=== PATIENT | male | born 1975 | race Caucasian/White ===

== ENCOUNTER 2017-11-11 07:30 | Day surgery (SDC) | payer OTHER ==
[~2017-11-11 07:30] MED LIST: CEFAZOLIN 2 GM/D5W RTU 2 GM/50 ML RTUPB IV PRN; CEFAZOLIN SODIUM 2 GM in DEXTROSE 5%-WATER 100 ML IV PRN
[2017-11-11] MEDS ORDERED: BUPIVACAINE HCL 0.5%/EPI 1:200000 INJ 1.8 ML CARTRIDGE ONE (08:28)
[2017-11-11] MEDS ORDERED: MINERAL OIL (STERILE) 10 ML VIAL ONE (08:28)
[2017-11-11] MEDS ORDERED: BUPIVACAINE HCL 0.5%-EPI 1:200000 INJ/PF 30 ML VIAL ONE (08:28)
[2017-11-11] MEDS ORDERED: OXYMETAZOLINE HCL 0.05% NASAL SPRAY 15 ML BOTTLE ONE (08:28)
[2017-11-11] MEDS ORDERED: SCOPOLAMINE HYDROBROMIDE 1.5 MG PATCH.TD72 TD PRN (08:31)
[2017-11-11] MEDS ORDERED: FENTANYL CITRATE INJ/PF 100 MCG/2 ML AMPUL ONE (08:39)
[2017-11-11] MEDS ORDERED: MIDAZOLAM 2 MG/2 ML INJ ONE (08:39)
[2017-11-11] MEDS ORDERED: HYDROMORPHONE HCL INJ/PF 2 MG/ML AMPULE ONE (08:40)
[2017-11-11] MEDS ORDERED: LIDOCAINE 2% INJ-PF (20 MG/ML) 10 ML AMPUL ONE (08:41)
[2017-11-11] MEDS ORDERED: SUCCINYLCHOLINE CHLORIDE INJ 200 MG/10 ML VIAL ONE (08:41)
[2017-11-11] MEDS ORDERED: ONDANSETRON HCL INJ/PF 4 MG/2 ML SDV ONE (08:41)
[2017-11-11] MEDS ORDERED: DEXAMETHASONE SOD PHOS INJ 10 MG/1 ML VIAL ONE (08:41)
[2017-11-11] MEDS ORDERED: PROPOFOL INJ 200 MG/20 ML VIAL IV ONE (08:41)
[2017-11-11] MEDS: HYDROMORPHONE HCL INJ/PF 2 MG/ML AMPULE ONE ×2 (13:16→13:35)
[2017-11-11] MEDS ORDERED: OXYCODONE-ACETAMINOPHEN 5-325 MG TABLET ONE (14:03)
--- NOTE | 2017-11-15 19:14 | [facility]ARE OPERATIVE REPORT E ---
[facility] Operative Report NAME: BLAIR PAGAN AGE: 42Y DATE OF SURGERY: 11/11/2017 ROOM: PREOPERATIVE DIAGNOSES: 1. Nasal deformities, acquired. 2. Nasal septal deviation, acquired. 3. Chronic nasal dyspnea. 4. Bilateral inferior turbinate hypertrophy. POSTOPERATIVE DIAGNOSES: 1. Nasal deformities, acquired. 2. Nasal septal deviation, acquired. 3. Chronic nasal dyspnea. 4. Bilateral inferior turbinate hypertrophy. OPERATION PERFORMED: 1. Septorhinoplasty addressing the bony nasal pyramid component. 2. Bilateral inferior turbinate reduction using a submucous resection technique. SURGEON: SHAHLA ISRAEL D.O. ANESTHESIA STAFF: MALI ACOSTA CRNA ANESTHESIA: General endotracheal tube. ESTIMATED BLOOD LOSS: 100 mL. FLUIDS: 800 mL. COMPLICATIONS: None. DRAINS: None. INSTRUMENT COUNTS: Sponge count verified. Needle count verified. MATERIALS FORWARDED SPECIMEN: None. FINDINGS: 1. Moderate to severe right nasal septal deviation involving bone and cartilage. 2. Left external nasal deviation. 3. Bulbous nasal tip complex with asymmetry noted with a twisting and left side deviation/asymmetry. 4. Bilateral inferior turbinate hypertrophy, left greater than right. 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 The patient had been referred for, and he complained of, a history of chronic nasal dyspnea over the years. The patient reports a history of repeated nasal trauma at times over the years with resulting nasal deformities. The patient denies history of acute recurrent or chronic sinus disease/sinusitis. The patient has desired over the years to undergo nasal surgery to improve functional nasal air flow. The patient, preoperatively, is noted to have the nasal findings as described in the findings section of the operative report. After extensive discussion with the patient, recommendation and plan was made for a closed/endonasal septorhinoplasty with bilateral inferior turbinate reduction to improve functional nasal airflow. The patient voiced an understanding of the described surgical plan, agreed to proceed, and consent was obtained. DESCRIPTION OF PROCEDURE: The patient was taken to the main operating room and was placed on the operating room table in the supine position. Appropriate monitors were placed. Using mask and IV access, general anesthesia was induced. The patient was transorally intubated without difficulty. He then underwent a nasal examination with injection of local anesthetic with epinephrine to establish a nasal block. Next, 2 Afrin-soaked neuro patties were placed per side. The patient was then prepped and draped in the usual fashion for nasal surgery. At this point, the patient underwent a hemitransfixion incision with elevation of the mucoperichondrial and mucoperiosteal flaps without difficulty. The bony cartilaginous junction was identified and divided with the most deviated portions of septal bone and cartilage removed. There was a greater than 1.5 x 1.5 cm cartilaginous L-strut that was preserved. At this point, the turbinate bipolar wand was used to make 2 passes in each inferior turbinate. Next, the anterior aspect of each inferior turbinate was accessed with a pair of Jon scissors followed by elevation of tissue in a submucosal plane with a [place] elevator. The turbinate microdebrider system at a setting of 1500 rpm was used to perform submucous resection on each side followed by use of a Jorge elevator to outfracture each inferior turbinate. Next, the redundant/excessive mucosa was trimmed and the margins were reapproximated with chromic suture. At this point, the rhinoplasty portion of the case was addressed in the following manner. There were bilateral intercartilaginous incisions performed with a #15 blade scalpel followed by dissection in a subperiosteal plane to elevate the dorsal soft tissue envelope. At this point, the Jon scissors were used to access the bony lateral nasal sidewall followed by use of a blunt dissector to create subperiosteal tunnels for the osteotomes. There was dorsal rasp work that was performed. The medial and lateral osteotomies were performed without difficulty with mobilization of the bony nasal pyramid. There was also a stab incision performed with an #11 blade scalpel to utilize the 2 mm osteotome for central osteotomies in the area of the radix. The bony nasal pyramid was mobilized into the midline. At this point, the nose was thoroughly irrigated and suctioned. There was adequate hemostasis was noted. Cartilage that was previously harvested was placed back between the mucosal flaps and banked. Residual cartilage remnants were used after they were crushed/bruised and placed into the right supratip/dorsal area to provide contour. At this point, all incisions were reapproximated with chromic suture. Next, 1 Blackman silicone nasal splint with bacitracin ointment was placed, per side, and these were secured at the caudal aspect with 4-0 Prolene suture, and 6-0 Prolene suture was used to stabilize the cartilage onlay grafts as well as to reapproximate the Radix incision site. The patient's nose was then cleaned and dried followed by placement of Mastisol, Steri-Strips, and a Norm aluminum nasal splint. The patient was then returned to the anesthesia staff and was allowed to emerge from general anesthesia. The patient was extubated in the main operating room and was then transported to the postanesthesia recovery unit in stable condition. There were no complications. DICTATING PHYSICIAN: SHAHLA ISRAEL D.O. [id number] Y#: [id number] ID: [id number] JOB#: [id number] ACCT: [id number] cc:SHAHLA ISRAEL D.O. >
== END 2017-11-11 14:54 | disposition home or self-care (01) ==
LOC: SC 07:30
PROVIDERS: ATTEND Otolaryngology
DX: M95.0 Acquired deformity of nose (principal); J34.2 Deviated nasal septum; J34.3 Hypertrophy of nasal turbinates; R06.09 Other forms of dyspnea; G43.909 Migraine, unspecified, not intractable, without status migrainosus; G47.30 Sleep apnea, unspecified; Z79.899 Other long term (current) drug therapy; Z87.891 Personal history of nicotine dependence
CPT/HCPCS: 30140; 30420; J2250; J3490 ×5; J0690 ×2; J3010; J1170; J0330; J2405; J2704; J1100; 160